=== PATIENT | male | born 1985 | race Asian ===

== ENCOUNTER 2018-10-15 21:31 | Emergency (ER) | payer MEDICAID, OTHER ==
[~2018-10-15] VITALS: Ht 167.6 cm; Wt 79.0 kg
[~2018-10-15 21:31] MED LIST: TRAZ-212 PO; promethazine
[2018-10-15 22:34] VITALS: BP 118/66
== END 2018-10-16 02:42 | disposition left against medical advice (07) ==
LOC: ER 21:31
DX: Z53.21 Procedure and treatment not carried out due to patient leaving prior to being seen by health care provider (principal)

== ENCOUNTER 2018-10-16 14:54 | Emergency (ER) | payer MEDICAID ==
[~2018-10-16] VITALS: Ht 170.2 cm; Wt 78.0 kg
[2018-10-16 15:03] VITALS: BP 124/76
== END 2018-10-16 19:02 | disposition left against medical advice (07) ==
LOC: ER 14:54
DX: Z53.21 Procedure and treatment not carried out due to patient leaving prior to being seen by health care provider (principal)

== ENCOUNTER 2018-10-19 03:32 | Emergency (ER) | payer MEDICAID ==
[~2018-10-19] VITALS: Ht 182.9 cm; Wt 68.7 kg
[2018-10-19 05:16] LABS: MEAN CORPUSCULAR HEMOGLOBIN 16.1 pg (28.0-32.0); MEAN CORPUSCULAR VOLUME 54.6 fL (80.0-94.0); PLATELET 486 x1000/uL (130-400); RED BLOOD CELL COUNT 3.16 mill/uL (4.7-6.1); RED CELL DISTRIBUTION WIDTH 21.4 % (11.6-14.6)
[2018-10-19 05:18] LABS: HEMATOCRIT 17.3 % (42.0-52.0); HEMOGLOBIN 5.1 g/dL (14.0-18.0)
[2018-10-19 05:24] LABS: CHLORIDE 100 mEq/L (98-107)
[2018-10-19] MEDS ORDERED: AMOXICILLIN 500 MG CAPSULE PO SCH (11:05)
[2018-10-19] MEDS ORDERED: OMEPRAZOLE 20MG CAPSULE EXTENDED RELEASE PO SCH (11:06)
[2018-10-19] MEDS ORDERED: CLARITHROMYCIN 500MG TABLET PO SCH (11:15)
[2018-10-19 11:21] VITALS: BP 121/68
[2018-10-19 14:28] LABS: TOTAL IRON BINDING CAPACITY 349 ug/dL (250-450)
[2018-10-19 14:57] LABS: VITAMIN B12 SERUM 470 pg/mL (211-911)
[2018-10-19 14:58] LABS: FERRITIN < 5 ng/mL (22-322)
== END 2018-10-19 11:25 | disposition left against medical advice (07) ==
LOC: ER 03:32 → CANBEDREQ 11:19 → ER 11:25
DX: D64.89 Other specified anemias (principal); R53.1 Weakness; R10.13 Epigastric pain; F17.200 Nicotine dependence, unspecified, uncomplicated; Z98.890 Other specified postprocedural states
CPT/HCPCS: 36415; 36430; 80053; 82607; 82728; 82746; 83540; 83550; 83690; 85027; 86850; 86900; 86901; 86920; 99285; P9016

== ENCOUNTER 2019-01-11 04:37 | Emergency (ER) | payer MEDICAID ==
[~2019-01-11] VITALS: Ht 167.6 cm; Wt 65.4 kg
[2019-01-11 06:54] LABS: CHLORIDE 99 mEq/L (98-107)
[2019-01-11 07:02] LABS: ETHANOL BLOOD < 10 mg/dL
[2019-01-11 07:11] LABS: INR 1.1; PROTHROMBIN TIME 11.1 sec (9.1-11.1)
[2019-01-11 07:18] LABS: BASOPHILS % 1.1 % (0.0-2.0); EOSINOPHILS % 0.5 % (0.0-5.0); LYMPHOCYTES % 53.3 % (20.0-50.0); MEAN CORPUSCULAR HEMOGLOBIN 11.7 pg (28.0-32.0); MEAN CORPUSCULAR VOLUME 47.6 fL (80.0-94.0); MEAN PLATELET VOLUME 8.8 fl (7.4-10.4); NEUTROPHILS % 39.1 % (40.0-76.0); PLATELET 498 x1000/uL (130-400); RED BLOOD CELL COUNT 3.14 mill/uL (4.7-6.1); RED CELL DISTRIBUTION WIDTH 23.1 % (11.6-14.6)
[2019-01-11 07:25] LABS: HEMOGLOBIN. 3.7 g/dL (14.0-18.0)
[2019-01-11 08:06] LABS: PLATELET ESTIMATE INCREASED
[2019-01-11 10:15] VITALS: BP 117/70
== END 2019-01-11 10:39 | disposition left against medical advice (07) ==
LOC: ER 04:37 → EDBEDREQ 08:19 → ER 10:39 → CANBEDREQ 11:14
DX: D64.9 Anemia, unspecified (principal); R53.1 Weakness; R10.31 Right lower quadrant pain; R42 Dizziness and giddiness; F17.200 Nicotine dependence, unspecified, uncomplicated; F12.10 Cannabis abuse, uncomplicated
CPT/HCPCS: 36415; 71045; 80053; 80320; 85025; 85610; 86850; 86900; 86901; 86920; 93005; 99285; J7040; Z7610; P9016; G0480

== ENCOUNTER 2019-05-10 14:39 | Emergency (ER) | payer MEDICAID ==
[~2019-05-10] VITALS: Ht 167.6 cm; Wt 64.0 kg
[~2019-05-10 14:39] MED LIST changes: -TRAZ-212 PO; +TRAZ-251 PO
[2019-05-10] MEDS ORDERED: SODIUM CHLORIDE 0.9% 1,000 ML IV ONE (15:42)
[2019-05-10 15:53] LABS: CLARITY URINE CLEAR (CLEAR); COLOR URINE DARK YELLOW (YELLOW); KETONES URINE TRACE (NEGATIVE); LEUKOCYTE ESTERASE URINE NEGATIVE (NEGATIVE); NITRITE URINE NEGATIVE (NEGATIVE); OCCULT BLOOD URINE NEGATIVE (NEGATIVE); PH URINE 5.5 (4.5-8.0); PROTEIN URINE NEGATIVE (NEGATIVE); SPECIFIC GRAVITY URINE 1.026 (1.005-1.030)
[2019-05-10 16:03] LABS: CHLORIDE 97 mEq/L (98-107)
[2019-05-10 16:05] LABS: *BARBITURATES SCREEN URINE NEGATIVE (NEGATIVE)
[2019-05-10 16:06] LABS: PROTHROMBIN TIME 10.5 sec (9.6-11.0)
[2019-05-10 16:06] LABS: *AMPHETAMINES SCREEN URINE PRESUMTIVE POSITIVE (NEGATIVE); *BENZODIAZEPINES SCREEN URINE NEGATIVE (NEGATIVE); *COCAINE SCREEN URINE NEGATIVE (NEGATIVE); METHADONE URINE SCREEN NEGATIVE (NEGATIVE); OPIATES URINE SCREEN NEGATIVE (NEGATIVE)
[2019-05-10 16:07] LABS: CANNABINOID URINE SCREEN PRESUMTIVE POSITIVE (NEGATIVE); PHENCYCLIDINE URINE SCREEN NEGATIVE (NEGATIVE)
[2019-05-10 16:08] LABS: ETHANOL BLOOD < 10 mg/dL
[2019-05-10 16:21] LABS: HEMATOCRIT. 25.1 % (42.0-52.0); HEMOGLOBIN. 7.9 g/dL (14.0-18.0); MEAN CORPUSCULAR HEMOGLOBIN 21.1 pg (28.0-32.0); MEAN CORPUSCULAR VOLUME 67.2 fL (80.0-94.0); MEAN PLATELET VOLUME 8.7 fl (7.4-10.4); PLATELET 732 x1000/uL (130-400); RED BLOOD CELL COUNT 3.73 mill/uL (4.7-6.1); RED CELL DISTRIBUTION WIDTH 37.8 % (11.6-14.6)
[2019-05-10 16:58] LABS: PLATELET ESTIMATE MARKEDLY INCREASED
[2019-05-10 20:23] VITALS: BP 123/78
== END 2019-05-10 20:26 | disposition left against medical advice (07) ==
LOC: ER 14:39
DX: K92.2 Gastrointestinal hemorrhage, unspecified (principal); D64.9 Anemia, unspecified; Z87.19 Personal history of other diseases of the digestive system; Z79.899 Other long term (current) drug therapy
CPT/HCPCS: 36415; 80053; 80305; 80320; 81003; 83690; 85025; 85610; 99283; J7030; Z7610; G0480

== ENCOUNTER 2019-06-29 18:04 | Emergency (ER) | payer MEDICAID, OTHER ==
[~2019-06-29] VITALS: Ht 167.6 cm; Wt 64.0 kg
[2019-06-29] MEDS ORDERED: SODIUM CHLORIDE 0.9% 1,000 ML IV ONE (18:26)
[2019-06-29 19:10] LABS: MEAN CORPUSCULAR HEMOGLOBIN 16.1 pg (28.0-32.0); MEAN CORPUSCULAR VOLUME 56.2 fL (80.0-94.0); MEAN PLATELET VOLUME 7.8 fl (7.4-10.4); PLATELET 703 x1000/uL (130-400); RED BLOOD CELL COUNT 1.94 mill/uL (4.7-6.1); RED CELL DISTRIBUTION WIDTH 24.8 % (11.6-14.6)
[2019-06-29 19:11] LABS: CHLORIDE 103 mEq/L (98-107)
[2019-06-29 19:12] LABS: HEMATOCRIT. 10.9 % (42.0-52.0); HEMOGLOBIN. 3.1 g/dL (14.0-18.0); INR 1.1; PARTIAL THROMBOPLASTIN TIME 27.8 sec (23.4-31.0); PROTHROMBIN TIME 11.6 sec (9.6-11.0)
[2019-06-29 19:15] LABS: ETHANOL BLOOD < 10 mg/dL
[2019-06-29] MEDS ORDERED: KCL 20MEQ/100ML PREMIX 100 ML IV ONE (19:30)
[2019-06-29 19:31] LABS: NUCLEATED RED BLOOD CELLS 4 /100 WBC; PLATELET ESTIMATE INCREASED
[2019-06-29 21:01] LABS: CLARITY URINE CLEAR (CLEAR); COLOR URINE YELLOW (YELLOW); KETONES URINE NEGATIVE (NEGATIVE); LEUKOCYTE ESTERASE URINE NEGATIVE (NEGATIVE); NITRITE URINE NEGATIVE (NEGATIVE); OCCULT BLOOD URINE NEGATIVE (NEGATIVE); PH URINE 7.5 (4.5-8.0); PROTEIN URINE NEGATIVE (NEGATIVE); UROBILINOGEN URINE 0.2 E.U./dL (0.2-1.0)
[2019-06-29] MEDS ORDERED: SODIUM CHLORIDE 0.9% 1,000 ML IV SCH (21:04)
[2019-06-29] MEDS ORDERED: IPRATROPIUM/ALBUTEROL 0.5-3(2.5)MG/3ML NEB NEB PRN (21:15)
[2019-06-29] MEDS ORDERED: ACETAMINOPHEN 325MG TABLET PO PRN (21:15)
[2019-06-29] MEDS ORDERED: ONDANSETRON HCL 4MG/2ML INJ IV PRN (21:15)
[2019-06-29] MEDS ORDERED: LORAZEPAM 2MG/ML CPJ IV PRN (21:15)
[2019-06-29 21:20] LABS: *BARBITURATES SCREEN URINE NEGATIVE (NEGATIVE); *COCAINE SCREEN URINE NEGATIVE (NEGATIVE)
[2019-06-29 21:21] LABS: *AMPHETAMINES SCREEN URINE PRESUMTIVE POSITIVE (NEGATIVE); *BENZODIAZEPINES SCREEN URINE NEGATIVE (NEGATIVE); CANNABINOID URINE SCREEN PRESUMTIVE POSITIVE (NEGATIVE); METHADONE URINE SCREEN NEGATIVE (NEGATIVE); OPIATES URINE SCREEN NEGATIVE (NEGATIVE); PHENCYCLIDINE URINE SCREEN NEGATIVE (NEGATIVE)
[2019-06-29] MEDS ORDERED: MORPHINE SULFATE 4 MG/ML CPJ (NOT FOR IM USE) IV ONE (23:15)
[2019-06-29] MEDS ORDERED: ONDANSETRON HCL 4MG/2ML INJ IV ONE (23:15)
[2019-06-30 00:37] LABS: HEMATOCRIT 15.2 % (42.0-52.0); HEMOGLOBIN 4.7 g/dL (14.0-18.0)
[2019-06-30 05:36] LABS: MEAN CORPUSCULAR HEMOGLOBIN 21.4 pg (28.0-32.0); MEAN CORPUSCULAR VOLUME 68.6 fL (80.0-94.0); MEAN PLATELET VOLUME 8.5 fl (7.4-10.4); PLATELET 524 x1000/uL (130-400); RED BLOOD CELL COUNT 3.03 mill/uL (4.7-6.1); RED CELL DISTRIBUTION WIDTH 32.4 % (11.6-14.6)
[2019-06-30 05:50] LABS: HEMOGLOBIN. 6.5 g/dL (14.0-18.0)
[2019-06-30 05:51] LABS: HEMATOCRIT. 20.8 % (42.0-52.0)
[2019-06-30 06:00] LABS: CHLORIDE 110 mEq/L (98-107)
[2019-06-30 08:25] LABS: NUCLEATED RED BLOOD CELLS 5 /100 WBC; PLATELET ESTIMATE INCREASED
[2019-06-30] MEDS ORDERED: PANTOPRAZOLE SODIUM 40 MG/VIAL IV SCH (09:00)
[2019-06-30 11:10] VITALS: BP 125/80
== END 2019-06-30 11:34 | disposition left against medical advice (07) ==
LOC: ER 18:04 → EDBEDREQSVC 19:20 → EDBEDREQTM 19:20 → EDBEDREQ 19:20 → EDBEDREQTM 19:28 → EDBEDREQ 19:28 → ER 06-30 11:34 → CANBEDREQ 06-30 11:40
DX: C18.9 Malignant neoplasm of colon, unspecified (principal); D62 Acute posthemorrhagic anemia; E87.6 Hypokalemia; C78.7 Secondary malignant neoplasm of liver and intrahepatic bile duct; I50.9 Heart failure, unspecified; F15.10 Other stimulant abuse, uncomplicated; F12.90 Cannabis use, unspecified, uncomplicated; F17.210 Nicotine dependence, cigarettes, uncomplicated; F10.11 Alcohol abuse, in remission; Y90.0 Blood alcohol level of less than 20 mg/100 ml
CPT/HCPCS: 36415; 70450; 71045; 74176; 80048; 80053; 80305; 80320; 81003; 82140; 83540; 83550; 83690; 83735; 83880; 84484; 85014; 85018; 85025; 85044; 85610; 85730; 86850; 86900; 86901; 86920; 93005; 96361; 96374; 96375; 99291; J2270; J2405; J3480; J7030; J7040; Z7610; P9016; G0480

== ENCOUNTER 2019-07-29 21:41 | Inpatient (IN) | payer MEDICAID, OTHER ==
[~2019-07-29] VITALS: Ht 167.6 cm; Wt 62.1 kg
[2019-07-29] MEDS ORDERED: FAMOTIDINE 20MG/2ML VIAL IV ONE (22:45)
[2019-07-29 23:06] LABS: CHLORIDE 101 mEq/L (98-107)
[2019-07-29 23:11] LABS: MEAN CORPUSCULAR HEMOGLOBIN 17.6 pg (28.0-32.0); MEAN CORPUSCULAR VOLUME 62.1 fL (80.0-94.0); MEAN PLATELET VOLUME 7.7 fl (7.4-10.4); PLATELET 754 x1000/uL (130-400); RED BLOOD CELL COUNT 2.04 mill/uL (4.7-6.1); RED CELL DISTRIBUTION WIDTH 28.4 % (11.6-14.6)
[2019-07-29 23:18] LABS: HEMATOCRIT. 12.7 % (42.0-52.0); HEMOGLOBIN. 3.6 g/dL (14.0-18.0)
[2019-07-29] MEDS ORDERED: POTASSIUM CHLORIDE INJ 40 MEQ in DEXT 5% WATER 250 ML IV ONE (23:30)
[2019-07-30 03:32] LABS: NUCLEATED RED BLOOD CELLS 7 /100 WBC
[2019-07-30 03:33] LABS: PLATELET ESTIMATE MARKEDL
[2019-07-30 04:00] VITALS: BP 107/71
[2019-07-30 04:57] VITALS: BP 106/59
[2019-07-30 06:00] VITALS: BP 141/92
[2019-07-30 08:00] VITALS: BP 119/82
[2019-07-30] MEDS ORDERED: PANTOPRAZOLE 80 MG in SODIUM CHLORIDE 0.9% 100 ML IV SCH (08:00)
[2019-07-30 09:52] VITALS: BP 128/72
== END 2019-07-30 10:10 | disposition left against medical advice (07) | DRG 254 ==
LOC: ER 21:41 → 3WST 07-30 00:19 → EDBEDREQSVC 07-30 00:44 → EDBEDREQTM 07-30 00:44 → EDBEDREQDT 07-30 00:44 → EDBEDREQ 07-30 00:44 → ENRESERV 07-30 01:46
PROVIDERS: ADMIT Internal Medicine; ATTEND Internal Medicine
PROC: 30233N1 Transfusion of Nonautologous Red Blood Cells into Peripheral Vein, Percutaneous Approach (ICD-10-PCS; principal; 2019-07-30)
DX: K63.9 Disease of intestine, unspecified (principal); E87.1 Hypo-osmolality and hyponatremia; K92.2 Gastrointestinal hemorrhage, unspecified; E88.09 Other disorders of plasma-protein metabolism, not elsewhere classified; B96.81 Helicobacter pylori [H. pylori] as the cause of diseases classified elsewhere; F15.10 Other stimulant abuse, uncomplicated; D50.9 Iron deficiency anemia, unspecified; D72.829 Elevated white blood cell count, unspecified; E87.6 Hypokalemia; F17.200 Nicotine dependence, unspecified, uncomplicated; R74.0 Nonspecific elevation of levels of transaminase and lactic acid dehydrogenase [LDH]; F19.10 Other psychoactive substance abuse, uncomplicated; Z53.29 Procedure and treatment not carried out because of patient's decision for other reasons; Z85.038 Personal history of other malignant neoplasm of large intestine; Z85.05 Personal history of malignant neoplasm of liver
CPT/HCPCS: 36415; 83735; 83880; 84484; 86850; 86900; 86920; 93005; 96365; 99291; C9113; J3480; J3490; J7040; J7050; J7060; P9016

== ENCOUNTER 2019-09-24 14:28 | Inpatient (IN) | payer MEDICAID, OTHER ==
[~2019-09-24] VITALS: Ht 167.6 cm; Wt 64.4 kg
[2019-09-24 15:55] LABS: CHLORIDE 104 mEq/L (98-107)
[2019-09-24 15:58] LABS: INR 1.4; PROTHROMBIN TIME 14.7 sec (9.6-11.0)
[2019-09-24 16:06] LABS: MEAN CORPUSCULAR HEMOGLOBIN 14.9 pg (28.0-32.0); MEAN CORPUSCULAR VOLUME 57.2 fL (80.0-94.0); MEAN PLATELET VOLUME 6.9 fl (7.4-10.4); PLATELET 675 x1000/uL (130-400); RED BLOOD CELL COUNT 1.58 mill/uL (4.7-6.1); RED CELL DISTRIBUTION WIDTH 25.5 % (11.6-14.6)
[2019-09-24 16:09] LABS: HEMOGLOBIN. 2.4 g/dL (14.0-18.0)
[2019-09-24 16:28] LABS: PLATELET ESTIMATE INCREASED
[2019-09-24] MEDS ORDERED: DEXT 5%/LACTATED RINGERS 1,000 ML IV ONE (16:45)
[2019-09-24] MEDS: DEXT 5%/0.45% NACL 1000ML 1,000 ML IV SCH (17:39)
[2019-09-24] MEDS ORDERED: LORAZEPAM 2MG/ML CPJ IV PRN (17:45)
[2019-09-24] MEDS ORDERED: NA PHOS,M-B/NA PHOS,DI-BA ENEMA 118ML PR PRN (17:45)
[2019-09-24] MEDS ORDERED: MAGNESIUM/ALUMINUM HYDROXIDE/SIMETHICONE 30ML UDC PO PRN (17:45)
[2019-09-24] MEDS ORDERED: HYDROCODONE/ACETAMINOPHEN 5/325MG TABLET PO PRN (17:45)
[2019-09-24] MEDS ORDERED: GUAIFENESIN 200MG/10ML SUGAR FREE UDC PO PRN (17:45)
[2019-09-24] MEDS ORDERED: DOCUSATE SODIUM 100MG CAPSULE PO PRN (17:45)
[2019-09-24] MEDS ORDERED: IPRATROPIUM/ALBUTEROL 0.5-3(2.5)MG/3ML NEB NEB PRN (17:45)
[2019-09-24 19:10] LABS: CHLORIDE 107 mEq/L (98-107)
[2019-09-24 20:30] VITALS: BP 114/52
[2019-09-24] MEDS ORDERED: POTASSIUM CHLORIDE 20MEQ TABLET SR PO SCH (20:30)
[2019-09-24] MEDS ORDERED: POTASSIUM CHLORIDE INJ 40 MEQ in DEXT 5% WATER 250 ML IV SCH (21:00)
[2019-09-25] VITALS (15 sets, daily range): BP systolic 103–122; BP diastolic 53–83
[2019-09-25 10:59] LABS: CHLORIDE 107 mEq/L (98-107)
[2019-09-25 11:06] LABS: LDL CHOLESTEROL 77 mg/dL (5-100); MEAN CORPUSCULAR HEMOGLOBIN 20.8 pg (28.0-32.0); MEAN CORPUSCULAR VOLUME 69.5 fL (80.0-94.0); MEAN PLATELET VOLUME 6.9 fl (7.4-10.4); PLATELET 520 x1000/uL (130-400); RED BLOOD CELL COUNT 2.31 mill/uL (4.7-6.1); RED CELL DISTRIBUTION WIDTH 34.9 % (11.6-14.6)
[2019-09-25 11:07] LABS: HDL CHOLESTEROL 8 mg/dL (40-59); INR 1.4
[2019-09-25 11:08] LABS: T4 FREE 0.86 ng/dL (0.76-1.46)
[2019-09-25 11:12] LABS: HEMOGLOBIN. 4.8 g/dL (14.0-18.0)
[2019-09-25] MEDS: DEXT 5%/0.45% NACL 1000ML 1,000 ML IV SCH (12:12)
[2019-09-25 13:18] LABS: NUCLEATED RED BLOOD CELLS 2 /100 WBC; PLATELET ESTIMATE INCREASED
[2019-09-25] MEDS ORDERED: POTASSIUM CHLORIDE 20MEQ TABLET SR PO ONE (14:07)
[2019-09-25] MEDS ORDERED: POTASSIUM CHLORIDE 20MEQ TABLET SR PO SCH (14:30)
[2019-09-25 23:05] LABS: HEMOGLOBIN 8.1 g/dL (14.0-18.0)
[2019-09-25 23:13] LABS: CHLORIDE 108 mEq/L (98-107); INR 1.3; PROTHROMBIN TIME 13.7 sec (9.6-11.0)
[2019-09-26] VITALS: BP 111/53
[2019-09-26] MEDS: MORPHINE SULFATE 2 MG/ML CPJ (NOT FOR IM USE) IV PRN ×6 (02:15→23:21)
[2019-09-26] MEDS: DEXT 5%/0.45% NACL 1000ML 1,000 ML IV SCH ×2 (02:17→18:53)
[2019-09-26 04:00] VITALS: BP 101/65
[2019-09-26 06:09] LABS: HEMATOCRIT. 22.4 % (42.0-52.0); MEAN CORPUSCULAR HEMOGLOBIN 24.7 pg (28.0-32.0); MEAN CORPUSCULAR VOLUME 75.2 fL (80.0-94.0); MEAN PLATELET VOLUME 8.6 fl (7.4-10.4); PLATELET 444 x1000/uL (130-400); RED BLOOD CELL COUNT 2.98 mill/uL (4.7-6.1); RED CELL DISTRIBUTION WIDTH 31.2 % (11.6-14.6)
[2019-09-26 06:25] LABS: CHLORIDE 107 mEq/L (98-107)
[2019-09-26 06:53] LABS: HEMOGLOBIN. 7.3 g/dL (14.0-18.0)
[2019-09-26] MEDS ORDERED: POTASSIUM CHLORIDE INJ 40 MEQ in DEXT 5% WATER 250 ML IV ONE (09:00)
[2019-09-26] MEDS ORDERED: POTASSIUM CHLORIDE 20MEQ TABLET SR PO NR (10:30)
[2019-09-26 12:56] LABS: NUCLEATED RED BLOOD CELLS 1 /100 WBC; PLATELET ESTIMATE INCREASED
[2019-09-26 15:21] LABS: HEMATOCRIT 23.8 % (42.0-52.0); HEMOGLOBIN 7.8 g/dL (14.0-18.0); MEAN CORPUSCULAR HEMOGLOBIN 24.6 pg (28.0-32.0); MEAN CORPUSCULAR VOLUME 75.2 fL (80.0-94.0); PLATELET 477 x1000/uL (130-400); RED BLOOD CELL COUNT 3.16 mill/uL (4.7-6.1); RED CELL DISTRIBUTION WIDTH 31.6 % (11.6-14.6)
[2019-09-26 20:00] VITALS: BP 119/81
[2019-09-27] VITALS: BP 124/83
[2019-09-27 04:00] VITALS: BP 127/84
[2019-09-27 08:00] VITALS: BP 110/77
[2019-09-27 08:36] LABS: BASOPHILS % 0.5 % (0.0-2.0); EOSINOPHILS % 0.5 % (0.0-5.0); HEMATOCRIT. 24.9 % (42.0-52.0); LYMPHOCYTES % 18.1 % (20.0-50.0); MEAN CORPUSCULAR HEMOGLOBIN 24.4 pg (28.0-32.0); MEAN CORPUSCULAR VOLUME 76.2 fL (80.0-94.0); MEAN PLATELET VOLUME 8.7 fl (7.4-10.4); MONOCYTES % 5.2 % (2.0-8.0); NEUTROPHILS % 75.7 % (40.0-76.0); PLATELET 448 x1000/uL (130-400); RED BLOOD CELL COUNT 3.28 mill/uL (4.7-6.1); RED CELL DISTRIBUTION WIDTH 32.7 % (11.6-14.6)
[2019-09-27] MEDS: MORPHINE SULFATE 2 MG/ML CPJ (NOT FOR IM USE) IV PRN ×3 (09:13→20:30)
[2019-09-27 09:25] LABS: CHLORIDE 104 mEq/L (98-107)
[2019-09-27 12:00] VITALS: BP 141/87
[2019-09-27 16:00] VITALS: BP 128/82
[2019-09-27 20:00] VITALS: BP 119/85
[2019-09-28] VITALS: BP 126/89
[2019-09-28] MEDS: MORPHINE SULFATE 2 MG/ML CPJ (NOT FOR IM USE) IV PRN ×6 (00:35→22:46)
[2019-09-28 04:00] VITALS: BP 131/91
[2019-09-28] MEDS: DEXT 5%/0.45% NACL 1000ML 1,000 ML IV SCH ×2 (04:46→21:01)
[2019-09-28 08:00] VITALS: BP 120/88
[2019-09-28 08:27] LABS: BASOPHILS % 0.9 % (0.0-2.0); EOSINOPHILS % 0.5 % (0.0-5.0); HEMATOCRIT. 22.4 % (42.0-52.0); HEMOGLOBIN. 7.1 g/dL (14.0-18.0); LYMPHOCYTES % 17.7 % (20.0-50.0); MEAN CORPUSCULAR HEMOGLOBIN 24.4 pg (28.0-32.0); MEAN CORPUSCULAR VOLUME 76.6 fL (80.0-94.0); MEAN PLATELET VOLUME 8.6 fl (7.4-10.4); MONOCYTES % 6.1 % (2.0-8.0); NEUTROPHILS % 74.8 % (40.0-76.0); PLATELET 397 x1000/uL (130-400); RED BLOOD CELL COUNT 2.92 mill/uL (4.7-6.1); RED CELL DISTRIBUTION WIDTH 33.1 % (11.6-14.6)
[2019-09-28 08:55] LABS: CHLORIDE 106 mEq/L (98-107)
[2019-09-28 12:00] VITALS: BP 119/81
[2019-09-28] MEDS ORDERED: BISACODYL 5MG TABLET PO NR ×2 (15:30→19:30)
[2019-09-28] MEDS ORDERED: METOCLOPRAMIDE HCL 5MG TABLET PO NR ×2 (15:30→19:30)
[2019-09-28 16:00] VITALS: BP 120/80
[2019-09-28] MEDS ORDERED: SORBITOL 70% SOLN 30ML PO NR ×2 (16:00→20:00)
[2019-09-28 20:00] VITALS: BP 120/82
[2019-09-28] MEDS: ACETAMINOPHEN 325MG TABLET PO PRN (20:58)
[2019-09-29] VITALS (10 sets, daily range): BP systolic 104–126; BP diastolic 65–88
[2019-09-29] MEDS: MORPHINE SULFATE 2 MG/ML CPJ (NOT FOR IM USE) IV PRN ×4 (04:19→20:52)
[2019-09-29] MEDS: SORBITOL 70% SOLN 30ML PO SCH ×2 (05:22→06:00)
[2019-09-29 07:05] LABS: BASOPHILS % 0.9 % (0.0-2.0); HEMATOCRIT. 26.1 % (42.0-52.0); HEMOGLOBIN. 8.4 g/dL (14.0-18.0); LYMPHOCYTES % 16.1 % (20.0-50.0); MEAN CORPUSCULAR VOLUME 77.2 fL (80.0-94.0); MEAN PLATELET VOLUME 8.6 fl (7.4-10.4); MONOCYTES % 7.7 % (2.0-8.0); NEUTROPHILS % 74.3 % (40.0-76.0); PLATELET 366 x1000/uL (130-400); RED BLOOD CELL COUNT 3.38 mill/uL (4.7-6.1); RED CELL DISTRIBUTION WIDTH 31.1 % (11.6-14.6)
[2019-09-29 07:09] LABS: INR 1.3; PROTHROMBIN TIME 13.4 sec (9.6-11.0)
[2019-09-29 07:21] LABS: CHLORIDE 108 mEq/L (98-107)
[2019-09-29 10:21] LABS: HEMATOCRIT 29.6 % (42.0-52.0); HEMOGLOBIN 9.4 g/dL (14.0-18.0)
[2019-09-29 10:29] LABS: INR 1.3; PROTHROMBIN TIME 13.1 sec (9.6-11.0)
[2019-09-29 10:54] LABS: PLATELET ESTIMATE NORMAL
[2019-09-29] MEDS ORDERED: ALBUMIN HUMAN 12.5G/250ML (5%) IV ONE (11:07)
[2019-09-29] MEDS ORDERED: IOHEXOL-300 100 ML BOTTLE ONE (14:00)
[2019-09-29] MEDS: DEXT 5%/0.45% NACL 1000ML 1,000 ML IV SCH (14:19)
[2019-09-29] MEDS: ACETAMINOPHEN 325MG TABLET PO PRN (20:51)
[2019-09-30] VITALS: BP 118/84
[2019-09-30] MEDS: MORPHINE SULFATE 2 MG/ML CPJ (NOT FOR IM USE) IV PRN ×6 (00:45→20:52)
[2019-09-30 04:00] VITALS: BP 131/96
[2019-09-30] MEDS: DEXT 5%/0.45% NACL 1000ML 1,000 ML IV SCH ×2 (06:59→23:39)
[2019-09-30 08:00] VITALS: BP 134/83
[2019-09-30 12:00] VITALS: BP 140/80
[2019-09-30 16:00] VITALS: BP 142/78
[2019-09-30 20:00] VITALS: BP 139/92
[2019-10-01] VITALS: BP 133/89
[2019-10-01] MEDS: MORPHINE SULFATE 2 MG/ML CPJ (NOT FOR IM USE) IV PRN ×4 (01:55→20:55)
[2019-10-01 04:00] VITALS: BP 137/90
[2019-10-01] MEDS: ACETAMINOPHEN 325MG TABLET PO PRN ×2 (07:57→18:17)
[2019-10-01 08:00] VITALS: BP 122/66
[2019-10-01 12:00] VITALS: BP 124/64
[2019-10-01 16:00] VITALS: BP 126/57
[2019-10-01] MEDS ORDERED: SORBITOL 70% SOLN 30ML PO NR ×2 (17:45→21:00)
[2019-10-01 20:00] VITALS: BP 116/74
[2019-10-02] VITALS: BP 120/70
[2019-10-02] MEDS: HYDROCODONE/ACETAMINOPHEN 5/325MG TABLET PO PRN ×3 (00:35→22:33)
[2019-10-02] MEDS: MORPHINE SULFATE 2 MG/ML CPJ (NOT FOR IM USE) IV PRN ×4 (01:28→20:23)
[2019-10-02 04:00] VITALS: BP 121/77
[2019-10-02] MEDS: ACETAMINOPHEN 325MG TABLET PO PRN (05:54)
[2019-10-02] MEDS ORDERED: SORBITOL 70% SOLN 30ML PO NR (06:00)
[2019-10-02 08:00] VITALS: BP 110/70
[2019-10-02 08:06] LABS: CHLORIDE 104 mEq/L (98-107)
[2019-10-02 08:07] LABS: HEMATOCRIT. 23.7 % (42.0-52.0); HEMOGLOBIN. 7.6 g/dL (14.0-18.0); MEAN CORPUSCULAR HEMOGLOBIN 24.6 pg (28.0-32.0); MEAN CORPUSCULAR VOLUME 76.8 fL (80.0-94.0); MEAN PLATELET VOLUME 8.6 fl (7.4-10.4); PLATELET 341 x1000/uL (130-400); RED BLOOD CELL COUNT 3.09 mill/uL (4.7-6.1)
[2019-10-02 11:29] LABS: INR 1.3; PROTHROMBIN TIME 13.6 sec (9.6-11.0)
[2019-10-02 11:30] LABS: CHLORIDE 100 mEq/L (98-107)
[2019-10-02 12:00] VITALS: BP 105/73
[2019-10-02 12:00] LABS: HEMOGLOBIN. 8.8 g/dL (14.0-18.0); MEAN CORPUSCULAR HEMOGLOBIN 24.4 pg (28.0-32.0); MEAN CORPUSCULAR VOLUME 77.8 fL (80.0-94.0); MEAN PLATELET VOLUME 8.7 fl (7.4-10.4); PLATELET 385 x1000/uL (130-400); RED BLOOD CELL COUNT 3.59 mill/uL (4.7-6.1); RED CELL DISTRIBUTION WIDTH 30.6 % (11.6-14.6)
[2019-10-02] MEDS ORDERED: POTASSIUM CHLORIDE INJ 40 MEQ in DEXT 5% WATER 250 ML IV SCH (12:30)
[2019-10-02 14:36] LABS: PLATELET ESTIMATE NORMAL
[2019-10-02 14:56] LABS: PLATELET ESTIMATE NORMAL
[2019-10-02] MEDS ORDERED: MIDAZOLAM HCL 5 MG/5 ML VIAL ONE (15:00)
[2019-10-02] MEDS ORDERED: FENTANYL CITRATE/PF 50MCG/ML 2ML VIAL ONE (15:00)
[2019-10-02] MEDS ORDERED: FENTANYL CITRATE/PF 50MCG/ML 2ML VIAL IV PRN (15:26)
[2019-10-02] MEDS ORDERED: MIDAZOLAM HCL 5 MG/5 ML VIAL IV PRN (15:27)
[2019-10-02 17:00] VITALS: BP 111/66
[2019-10-02 20:00] VITALS: BP 143/95
[2019-10-03] MEDS ORDERED: METRONIDAZOLE 500 MG PREMIX 100 ML IV SCH
[2019-10-03] MEDS: MORPHINE SULFATE 2 MG/ML CPJ (NOT FOR IM USE) IV PRN ×3 (00:43→09:34)
[2019-10-03] MEDS: ACETAMINOPHEN 325MG TABLET PO PRN (06:52)
[2019-10-03 07:53] LABS: HEMATOCRIT. 24.2 % (42.0-52.0); HEMOGLOBIN. 7.6 g/dL (14.0-18.0); MEAN CORPUSCULAR HEMOGLOBIN 24.2 pg (28.0-32.0); MEAN CORPUSCULAR VOLUME 77.1 fL (80.0-94.0); MEAN PLATELET VOLUME 8.8 fl (7.4-10.4); PLATELET 402 x1000/uL (130-400); RED BLOOD CELL COUNT 3.13 mill/uL (4.7-6.1); RED CELL DISTRIBUTION WIDTH 30.3 % (11.6-14.6)
[2019-10-03 08:00] VITALS: BP 125/86
[2019-10-03 08:38] LABS: CHLORIDE 102 mEq/L (98-107)
[2019-10-03] MEDS ORDERED: POTASSIUM CHLORIDE 20MEQ/PACKET PO NR (09:00)
[2019-10-03 11:25] LABS: PLATELET ESTIMATE SLIGHTLY INCREASED
[2019-10-03 11:43] LABS: *AMPHETAMINES SCREEN URINE NEGATIVE (NEGATIVE)
[2019-10-03 11:44] LABS: *BARBITURATES SCREEN URINE NEGATIVE (NEGATIVE); *BENZODIAZEPINES SCREEN URINE PRESUMTIVE POSITIVE (NEGATIVE); *COCAINE SCREEN URINE NEGATIVE (NEGATIVE); METHADONE URINE SCREEN NEGATIVE (NEGATIVE); OPIATES URINE SCREEN PRESUMTIVE POSITIVE (NEGATIVE); PHENCYCLIDINE URINE SCREEN NEGATIVE (NEGATIVE)
[2019-10-03 11:45] LABS: CANNABINOID URINE SCREEN NEGATIVE (NEGATIVE)
[2019-10-03 12:00] VITALS: BP 124/80
[2019-10-03] MEDS ORDERED: POTASSIUM CHLORIDE INJ 40 MEQ in DEXT 5% WATER 250 ML IV NR ×2 (13:00→18:00)
[2019-10-03] MEDS: HYDROCODONE/ACETAMINOPHEN 5/325MG TABLET PO PRN (13:14)
[2019-10-03] MEDS ORDERED: KCL 20MEQ/100ML PREMIX 100 ML IV ONE ×2 (16:00→17:00)
[2019-10-03] MEDS ORDERED: SUCCINYLCHOLINE CHLORIDE 200MG/10ML IV ONE (16:37)
[2019-10-03] MEDS ORDERED: DEXAMETHASONE 4MG/ML 1ML VIAL ONE (16:37)
[2019-10-03] MEDS ORDERED: ONDANSETRON HCL 4MG/2ML INJ ONE (16:37)
[2019-10-03] MEDS ORDERED: PHENYLEPHRINE HCL 10 MG/ML 1ML (IV VIAL) IV ONE (16:37)
[2019-10-03] MEDS ORDERED: EPHEDRINE SULFATE 50MG/ML VIAL ONE (16:37)
[2019-10-03] MEDS ORDERED: ROCURONIUM BROMIDE 10MG/ML VIAL 5ML IV ONE (16:38)
[2019-10-03] MEDS ORDERED: SODIUM CHLORIDE 0.9% 10ML VIAL ONE (16:38)
[2019-10-03] MEDS ORDERED: MIDAZOLAM HCL 2 MG/2 ML VIAL ONE ×2 (16:39→22:37)
[2019-10-03] MEDS ORDERED: FENTANYL CITRATE/PF 50MCG/ML 2ML VIAL ONE ×2 (16:39→22:37)
[2019-10-03] MEDS ORDERED: PROPOFOL 200MG/20ML VIAL IV ONE (17:10)
[2019-10-03] MEDS ORDERED: LIDOCAINE HCL/PF 1% 10 MG/ML 5ML VIAL ONE (17:10)
[2019-10-03] MEDS ORDERED: METRONIDAZOLE 500 MG PREMIX 100 ML IV ONE (17:36)
[2019-10-03] MEDS ORDERED: LEVOFLOXACIN 500MG PREMIX 100 ML IV ONE (17:36)
[2019-10-03] MEDS ORDERED: BUPIVACAINE HCL/PF 0.5% (5MG/ML) 10ML ONE (18:33)
[2019-10-03] MEDS ORDERED: BUPIVACAINE HCL 0.5% 290 ML in ON-Q PM015 DRUG DELIV DEVICE 1 EA IR SCH (18:45)
[2019-10-03] MEDS ORDERED: GLYCOPYRROLATE 0.2 MG/ML 2ML VIAL ONE (18:49)
[2019-10-03] MEDS ORDERED: NEOSTIGMINE METHYLSULFATE 1MG/ML 10 ML VIAL ONE (18:50)
[2019-10-03] MEDS: HYDROMORPHONE HCL/PF 2MG/ML CPJ IV PRN ×7 (19:25→21:40)
[2019-10-03] MEDS ORDERED: HYDROMORPHONE HCL/PF 2MG/ML CPJ IV PRN (21:15)
[2019-10-03 21:48] LABS: HEMATOCRIT. 33.2 % (42.0-52.0); HEMOGLOBIN. 10.4 g/dL (14.0-18.0); MEAN CORPUSCULAR VOLUME 79.9 fL (80.0-94.0); MEAN PLATELET VOLUME 8.1 fl (7.4-10.4); PLATELET 513 x1000/uL (130-400); RED BLOOD CELL COUNT 4.16 mill/uL (4.7-6.1); RED CELL DISTRIBUTION WIDTH 26.8 % (11.6-14.6)
[2019-10-03 21:52] LABS: INR 1.4; PROTHROMBIN TIME 13.8 sec (9.6-11.0)
[2019-10-03] MEDS ORDERED: ESMOLOL HCL 10MG/ML 10ML VIAL IV ONE (22:37)
[2019-10-03 22:39] LABS: PLATELET ESTIMATE INCREASED
[2019-10-03 23:30] VITALS: BP 109/68
[2019-10-03 23:45] VITALS: BP 105/68
[2019-10-04] VITALS (48 sets, daily range): BP systolic 88–140; BP diastolic 47–85
[2019-10-04] MEDS ORDERED: LEVOFLOXACIN 500MG PREMIX 100 ML IV SCH
[2019-10-04] MEDS: MORPHINE SULFATE 2 MG/ML CPJ (NOT FOR IM USE) IV PRN ×2 (00:25→04:36)
[2019-10-04] MEDS: METRONIDAZOLE 500 MG PREMIX 100 ML IV SCH ×4 (01:23→18:54)
[2019-10-04] MEDS: DEXT 5%/0.45% NACL KCL 20MEQ/L 1,000 ML IV SCH ×3 (01:24→21:32)
[2019-10-04] MEDS: DIPHENHYDRAMINE 50MG/ML VIAL IV PRN ×3 (08:02→22:20)
[2019-10-04] MEDS: HYDROMORPHONE HCL/PF 2MG/ML CPJ IV PRN ×3 (10:43→18:46)
[2019-10-04 13:01] LABS: HEMATOCRIT. 29.7 % (42.0-52.0); HEMOGLOBIN. 9.1 g/dL (14.0-18.0); MEAN CORPUSCULAR HEMOGLOBIN 24.4 pg (28.0-32.0); MEAN CORPUSCULAR VOLUME 79.3 fL (80.0-94.0); MEAN PLATELET VOLUME 8.4 fl (7.4-10.4); PLATELET 486 x1000/uL (130-400); RED BLOOD CELL COUNT 3.74 mill/uL (4.7-6.1); RED CELL DISTRIBUTION WIDTH 27.6 % (11.6-14.6)
[2019-10-04 13:15] LABS: CHLORIDE 106 mEq/L (98-107)
[2019-10-04 13:20] LABS: PHOSPHORUS 2.8 mg/dL (2.5-4.9)
[2019-10-04 15:12] LABS: PLATELET ESTIMATE INCREASED
[2019-10-04] MEDS: LEVOFLOXACIN 500MG PREMIX 100 ML IV SCH (17:13)
[2019-10-04] MEDS: ONDANSETRON HCL 4MG/2ML INJ IV PRN (22:20)
[2019-10-05] VITALS (52 sets, daily range): BP systolic 76–148; BP diastolic 27–111
[2019-10-05] MEDS: METRONIDAZOLE 500 MG PREMIX 100 ML IV SCH ×5 (00:14→23:30)
[2019-10-05] MEDS: HYDROMORPHONE HCL/PF 2MG/ML CPJ IV PRN ×5 (00:43→20:47)
[2019-10-05] MEDS: DIPHENHYDRAMINE 50MG/ML VIAL IV PRN ×2 (04:10→18:59)
[2019-10-05] MEDS: DEXT 5%/0.45% NACL KCL 20MEQ/L 1,000 ML IV SCH (05:36)
[2019-10-05 06:21] LABS: CHLORIDE 105 mEq/L (98-107)
[2019-10-05 06:48] LABS: HEMATOCRIT. 28.7 % (42.0-52.0); HEMOGLOBIN. 9.1 g/dL (14.0-18.0); MEAN CORPUSCULAR HEMOGLOBIN 25.1 pg (28.0-32.0); MEAN CORPUSCULAR VOLUME 79.7 fL (80.0-94.0); MEAN PLATELET VOLUME 8.6 fl (7.4-10.4); PLATELET 466 x1000/uL (130-400); RED CELL DISTRIBUTION WIDTH 27.4 % (11.6-14.6)
[2019-10-05] MEDS ORDERED: SODIUM CHLORIDE 0.9% 500 ML IV ONE (08:40)
[2019-10-05] MEDS: ACETAMINOPHEN 650MG/20.3ML UDC PO PRN (08:49)
[2019-10-05] MEDS: DEXT 5%/0.45% NACL 1000ML 1,000 ML IV SCH ×2 (12:46→22:21)
[2019-10-05] MEDS: LEVOFLOXACIN 500MG PREMIX 100 ML IV SCH (16:41)
[2019-10-06] VITALS (39 sets, daily range): BP systolic 99–143; BP diastolic 41–103
[2019-10-06] MEDS: HYDROMORPHONE HCL/PF 2MG/ML CPJ IV PRN ×6 (01:38→20:19)
[2019-10-06] MEDS: DIPHENHYDRAMINE 50MG/ML VIAL IV PRN (04:37)
[2019-10-06] MEDS: METRONIDAZOLE 500 MG PREMIX 100 ML IV SCH ×4 (05:48→23:53)
[2019-10-06 05:54] LABS: CHLORIDE 104 mEq/L (98-107)
[2019-10-06 05:57] LABS: HEMATOCRIT. 26.7 % (42.0-52.0); HEMOGLOBIN. 8.2 g/dL (14.0-18.0); MEAN CORPUSCULAR HEMOGLOBIN 24.4 pg (28.0-32.0); MEAN CORPUSCULAR VOLUME 79.1 fL (80.0-94.0); MEAN PLATELET VOLUME 8.6 fl (7.4-10.4); PLATELET 385 x1000/uL (130-400); RED BLOOD CELL COUNT 3.38 mill/uL (4.7-6.1); RED CELL DISTRIBUTION WIDTH 27.1 % (11.6-14.6)
[2019-10-06 07:11] LABS: PLATELET ESTIMATE INCREASED
[2019-10-06 09:38] LABS: PLATELET ESTIMATE NORMAL
[2019-10-06] MEDS ORDERED: MAGNESIUM 2 G PREMIX 50 ML IV SCH (12:00)
[2019-10-06] MEDS: DEXT 5%/0.45% NACL 1000ML 1,000 ML IV SCH ×2 (12:15→18:03)
[2019-10-06] MEDS: LEVOFLOXACIN 500MG PREMIX 100 ML IV SCH (18:02)
[2019-10-07] VITALS: BP 122/86
[2019-10-07] MEDS: HYDROMORPHONE HCL/PF 2MG/ML CPJ IV PRN ×10 (00:14→23:51)
[2019-10-07 00:50] VITALS: BP 103/78
[2019-10-07] MEDS: METRONIDAZOLE 500 MG PREMIX 100 ML IV SCH ×5 (06:25→23:51)
[2019-10-07 07:54] LABS: HEMATOCRIT. 25.4 % (42.0-52.0); HEMOGLOBIN. 7.9 g/dL (14.0-18.0); MEAN CORPUSCULAR HEMOGLOBIN 24.5 pg (28.0-32.0); MEAN CORPUSCULAR VOLUME 78.7 fL (80.0-94.0); PLATELET 418 x1000/uL (130-400); RED BLOOD CELL COUNT 3.22 mill/uL (4.7-6.1); RED CELL DISTRIBUTION WIDTH 28.1 % (11.6-14.6)
[2019-10-07 08:00] VITALS: BP 111/80
[2019-10-07] MEDS: DEXT 5%/0.45% NACL 1000ML 1,000 ML IV SCH ×2 (08:39→20:28)
[2019-10-07 08:43] LABS: CHLORIDE 104 mEq/L (98-107)
[2019-10-07 10:26] LABS: PLATELET ESTIMATE INCREASED
[2019-10-07 16:00] VITALS: BP 107/71
[2019-10-07] MEDS: LEVOFLOXACIN 500MG PREMIX 100 ML IV SCH ×2 (16:37→17:45)
[2019-10-07 20:00] VITALS: BP 106/74
[2019-10-08] VITALS: BP 109/75
[2019-10-08] MEDS: HYDROMORPHONE HCL/PF 2MG/ML CPJ IV PRN ×6 (02:52→20:11)
[2019-10-08 04:00] VITALS: BP 115/78
[2019-10-08] MEDS: METRONIDAZOLE 500 MG PREMIX 100 ML IV SCH ×3 (06:11→17:29)
[2019-10-08 07:01] LABS: HEMATOCRIT. 24.9 % (42.0-52.0); HEMOGLOBIN. 7.9 g/dL (14.0-18.0); MEAN CORPUSCULAR HEMOGLOBIN 24.8 pg (28.0-32.0); MEAN CORPUSCULAR VOLUME 77.9 fL (80.0-94.0); MEAN PLATELET VOLUME 8.3 fl (7.4-10.4); PLATELET 432 x1000/uL (130-400); RED BLOOD CELL COUNT 3.19 mill/uL (4.7-6.1); RED CELL DISTRIBUTION WIDTH 27.9 % (11.6-14.6)
[2019-10-08 07:52] LABS: CHLORIDE 105 mEq/L (98-107)
[2019-10-08 08:00] VITALS: BP 119/76
[2019-10-08] MEDS: DEXT 5%/0.45% NACL 1000ML 1,000 ML IV SCH ×2 (10:18→22:53)
[2019-10-08] MEDS: ONDANSETRON HCL 4MG/2ML INJ IV PRN ×2 (10:37→22:51)
[2019-10-08 12:00] VITALS: BP 109/75
[2019-10-08 16:00] VITALS: BP 113/80
[2019-10-08 16:25] LABS: PLATELET ESTIMATE INCREASED
[2019-10-08 20:00] VITALS: BP 113/84
[2019-10-09] MEDS: METRONIDAZOLE 500 MG PREMIX 100 ML IV SCH ×4 (00:22→18:03)
[2019-10-09] MEDS: HYDROMORPHONE HCL/PF 2MG/ML CPJ IV PRN (00:28)
[2019-10-09 05:00] VITALS: BP 118/68
[2019-10-09 08:00] VITALS: BP 130/81
[2019-10-09] MEDS: ONDANSETRON HCL 4MG/2ML INJ IV PRN (08:44)
[2019-10-09] MEDS ORDERED: HYDROMORPHONE HCL/PF 2MG/ML CPJ IV SCH (10:45)
[2019-10-09] MEDS ORDERED: LORAZEPAM 2MG/ML CPJ IV SCH (10:45)
[2019-10-09] MEDS: DEXT 5%/0.45% NACL 1000ML 1,000 ML IV SCH ×2 (16:00→17:50)
[2019-10-09] MEDS ORDERED: HYDROMORPHONE HCL/PF 4MG/ML CPJ IM PRN (17:30)
[2019-10-09] MEDS: LEVOFLOXACIN 500MG PREMIX 100 ML IV SCH (17:50)
[2019-10-09 21:22] VITALS: BP 174/74
[2019-10-10] VITALS: BP 185/98
[2019-10-10] MEDS: METRONIDAZOLE 500 MG PREMIX 100 ML IV SCH ×5 (00:15→23:37)
[2019-10-10] MEDS: CLONIDINE 0.1MG TABLET PO PRN ×2 (00:15→05:19)
[2019-10-10] MEDS: HYDROMORPHONE HCL/PF 2MG/ML CPJ IV PRN ×2 (00:16→20:38)
[2019-10-10] MEDS: DEXT 5%/0.45% NACL 1000ML 1,000 ML IV SCH ×3 (02:00→22:00)
[2019-10-10 04:00] VITALS: BP 176/96
[2019-10-10 08:00] VITALS: BP 117/89
[2019-10-10 12:00] VITALS: BP 139/75
[2019-10-10] MEDS: LEVOFLOXACIN 500MG PREMIX 100 ML IV SCH (16:10)
[2019-10-11] MEDS: METRONIDAZOLE 500 MG PREMIX 100 ML IV SCH ×3 (05:51→17:38)
[2019-10-11] MEDS: HYDROMORPHONE HCL/PF 2MG/ML CPJ IV PRN ×6 (06:09→22:44)
[2019-10-11 08:00] VITALS: BP 109/71
[2019-10-11] MEDS: DEXT 5%/0.45% NACL 1000ML 1,000 ML IV SCH ×2 (08:22→17:45)
[2019-10-11 12:00] VITALS: BP 109/77
[2019-10-11 16:00] VITALS: BP 106/75
[2019-10-11] MEDS: LEVOFLOXACIN 500MG PREMIX 100 ML IV SCH (16:16)
[2019-10-11 20:00] VITALS: BP_SYST 108; BP_SYST 99; BP_DIAS 73; BP_DIAS 74
[2019-10-12] VITALS: BP 108/74
[2019-10-12] MEDS: HYDROMORPHONE HCL/PF 2MG/ML CPJ IV PRN ×10 (01:11→22:48)
[2019-10-12 04:00] VITALS: BP 98/69
[2019-10-12] MEDS: DEXT 5%/0.45% NACL 1000ML 1,000 ML IV SCH ×2 (04:31→14:00)
[2019-10-12 08:00] VITALS: BP 110/73
[2019-10-12 12:00] VITALS: BP 102/61
[2019-10-12 16:00] VITALS: BP 111/78
[2019-10-12] MEDS: ACETAMINOPHEN 650MG/20.3ML UDC PO PRN (17:18)
[2019-10-12 20:00] VITALS: BP 104/69
[2019-10-13] VITALS (7 sets, daily range): BP systolic 97–114; BP diastolic 69–86
[2019-10-13] MEDS: HYDROMORPHONE HCL/PF 2MG/ML CPJ IV PRN ×10 (00:40→23:20)
[2019-10-13] MEDS: DEXT 5%/0.45% NACL 1000ML 1,000 ML IV SCH ×3 (00:49→23:21)
[2019-10-14] VITALS: BP 115/77
[2019-10-14] MEDS: HYDROMORPHONE HCL/PF 2MG/ML CPJ IV PRN ×6 (01:56→22:14)
[2019-10-14 04:00] VITALS: BP 106/74
[2019-10-14] MEDS: DEXT 5%/0.45% NACL 1000ML 1,000 ML IV SCH ×2 (06:00→18:19)
[2019-10-14 08:00] VITALS: BP 107/87
[2019-10-14 12:00] VITALS: BP 101/71
[2019-10-14 16:00] VITALS: BP 117/86
[2019-10-14 20:00] VITALS: BP 113/75
[2019-10-14] MEDS: ACETAMINOPHEN 650MG/20.3ML UDC PO PRN (20:57)
[2019-10-15] VITALS: BP 104/75
[2019-10-15] MEDS: HYDROMORPHONE HCL/PF 2MG/ML CPJ IV PRN ×6 (01:20→22:45)
[2019-10-15 04:00] VITALS: BP 112/82
[2019-10-15 08:00] VITALS: BP 105/75
[2019-10-15 12:00] VITALS: BP 109/77
[2019-10-15 16:00] VITALS: BP 99/68
[2019-10-15] MEDS: ACETAMINOPHEN 650MG/20.3ML UDC PO PRN (18:06)
[2019-10-15] MEDS: DEXT 5%/0.45% NACL 1000ML 1,000 ML IV SCH (19:50)
[2019-10-15 20:00] VITALS: BP 112/79
[2019-10-16] VITALS: BP 110/77
[2019-10-16] MEDS: HYDROMORPHONE HCL/PF 2MG/ML CPJ IV PRN ×6 (02:19→21:39)
[2019-10-16 04:00] VITALS: BP 114/78
[2019-10-16 08:00] VITALS: BP 120/81
[2019-10-16 08:01] LABS: HEMATOCRIT. 24.7 % (42.0-52.0); HEMOGLOBIN. 7.8 g/dL (14.0-18.0); MEAN CORPUSCULAR HEMOGLOBIN 24.1 pg (28.0-32.0); MEAN CORPUSCULAR VOLUME 76.1 fL (80.0-94.0); MEAN PLATELET VOLUME 8.1 fl (7.4-10.4); PLATELET 548 x1000/uL (130-400); RED BLOOD CELL COUNT 3.24 mill/uL (4.7-6.1); RED CELL DISTRIBUTION WIDTH 26.9 % (11.6-14.6)
[2019-10-16 08:16] LABS: CHLORIDE 106 mEq/L (98-107)
[2019-10-16 12:00] VITALS: BP 103/66
[2019-10-16 15:06] LABS: PLATELET ESTIMATE INCREASED
[2019-10-16 16:00] VITALS: BP 115/77
[2019-10-16] MEDS ORDERED: POTASSIUM CHLORIDE 20MEQ/PACKET PO NR (19:41)
[2019-10-16 20:00] VITALS: BP 115/78
[2019-10-16] MEDS: DEXT 5%/0.45% NACL 1000ML 1,000 ML IV SCH (21:39)
[2019-10-17] VITALS (7 sets, daily range): BP systolic 95–116; BP diastolic 19–83
[2019-10-17] MEDS: HYDROMORPHONE HCL/PF 2MG/ML CPJ IV PRN ×6 (00:57→21:12)
[2019-10-18] VITALS (7 sets, daily range): BP systolic 105–120; BP diastolic 75–83
[2019-10-18] MEDS: HYDROMORPHONE HCL/PF 2MG/ML CPJ IV PRN ×6 (00:40→16:55)
[2019-10-18] MEDS: DEXT 5%/0.45% NACL 1000ML 1,000 ML IV SCH (03:49)
[2020-01-15] MEDS ORDERED: zofran (03:23)
[2020-01-15] MEDS ORDERED: DOCU-138 MT (03:24)
[2020-01-15] MEDS ORDERED: PANT20TA3 MT (03:24)
[2020-01-16] MEDS ORDERED: ONDA4TAB5 MT ×2 (11:41→15:06)
[2020-01-16] MEDS ORDERED: DOCU-138 MT (11:41)
[2020-01-16] MEDS ORDERED: MORP30TA54 MT ×2 (11:41→15:06)
[2020-01-16] MEDS ORDERED: HYDR-4001 MT ×2 (11:41→15:06)
[2020-01-16] MEDS ORDERED: LEVO500T2 MT ×3 (14:38→15:06)
[2020-01-16] MEDS ORDERED: DOCU-150 MT (15:06)
== END 2019-10-18 18:02 | disposition hospice, home (50) | DRG 231 ==
LOC: ER 14:28 → 7WST 17:08 → EDBEDREQ 17:13 → EDBEDREQTM 17:13 → ENRESERV 19:16 → MICUNO 10-03 23:10 → 7WST 10-07 00:30
PROVIDERS: ADMIT Internal Medicine; ATTEND Internal Medicine
PROC: 30233N1 Transfusion of Nonautologous Red Blood Cells into Peripheral Vein, Percutaneous Approach (ICD-10-PCS; 2019-09-24)
PROC: 0DBK8ZX Excision of Ascending Colon, Via Natural or Artificial Opening Endoscopic, Diagnostic (ICD-10-PCS; 2019-10-02)
PROC: 0DTK0ZZ Resection of Ascending Colon, Open Approach (ICD-10-PCS; principal; 2019-10-03)
DX: C18.2 Malignant neoplasm of ascending colon (principal); E43 Unspecified severe protein-calorie malnutrition; C78.7 Secondary malignant neoplasm of liver and intrahepatic bile duct; E83.51 Hypocalcemia; E87.5 Hyperkalemia; K92.2 Gastrointestinal hemorrhage, unspecified; R18.8 Other ascites; D50.0 Iron deficiency anemia secondary to blood loss (chronic); E87.6 Hypokalemia; F32.9 Major depressive disorder, single episode, unspecified; R62.7 Adult failure to thrive; Z51.5 Encounter for palliative care; Z80.41 Family history of malignant neoplasm of ovary; Z80.0 Family history of malignant neoplasm of digestive organs; Z81.8 Family history of other mental and behavioral disorders; Z86.19 Personal history of other infectious and parasitic diseases; Z68.22 Body mass index [BMI] 22.0-22.9, adult; Z87.19 Personal history of other diseases of the digestive system; Z91.19 Patient's noncompliance with other medical treatment and regimen; Z79.899 Other long term (current) drug therapy
CPT/HCPCS: 36415; 71045; 74018; 74177; 76705; 80048; 80053; 80061; 80305; 82270; 82378; 83605; 83735; 83880; 84100; 84132; 84439; 84443; 84484; 85014; 85018; 85025; 85027; 85049; 85384; 86850; 86900; 86920; 88305; 88307; 88309; 93005; 97110; 97116; 97161; 97164; 97166; 97530; 97535; 99291; J0330; J1100; J1170; J1200; J1956; J2060; J2250; J2270; J2370; J2405; J2704; J2710; J3010; J3475; J3480; J3490; J7040; J7042; J7060; J7121; J8597; P9016; P9041; Q9967